=== PATIENT | male | born 1990 | race Hispanic/Latino ===

== ENCOUNTER 2023-02-20 14:06 | Emergency (ER) | payer SELFPAY ==
[2023-02-20 14:18] VITALS: BP 148/96; PULSE 89; RESP 16; TEMP 36.4; O2SAT 100
--- NOTE | 2023-02-20 14:20 | ED.SKABFB ---
HPI - Skin/Abscess/Foreign Bdy General Chief complaint: Skin/Abscess/Foreign Body Stated complaint: poison radha Time Seen by Provider: 02/20/23 14:10 Source: patient Mode of arrival: ambulatory Limitations: no limitations History of Present Illness HPI narrative: Patient is a 32-year-old male who presents with rash on bilateral ankles and arms. Patient states he cut the grass on Thursday and noticed a rash on Thursday. Patient has been using calamine lotion and other anti-itch spray with mild relief. States it appears and feels the same as when he had poison radha in the past. Denies any pain 2 lesions just itching. Denies any fever, chills, nausea, vomiting, diarrhea Related Data Allergies Allergy/AdvReac Type Severity Reaction Status Date / Time No Known Allergies Allergy Verified 02/20/23 14:17 Review of Systems Review of Systems: All systems reviewed & are unremarkable except as noted in HPI and below Constitutional: Constitutional: Denies body ache(s), Denies chills, Denies fatigue, Denies fever(s), Denies headache(s), Denies malaise and Denies weakness Eyes: Eyes: Denies blurry vision, Denies irritation and Denies loss of vision ENT: Denies otalgia, Denies headache(s), Denies nasal discharge, Denies sinus pain and Denies sore throat Cardiovascular: Cardiovascular: Denies chest pain, Denies irregular heart rhythm and Denies dyspnea Respiratory: Respiratory: Denies dyspnea Gastrointestinal: Gastrointestinal: Denies abdominal pain, Denies melena, Denies hematochezia, Denies diarrhea, Denies nausea and Denies vomiting Musculoskeletal: Musculoskeletal: Denies back pain, Denies myalgias and Denies arthralgias Integumentary/Breasts: Skin/Breast: Reports pruritus and Reports rash Neurologic: Denies headache(s), Denies loss of vision and Denies weakness Psychiatric: Psychiatric: Reports no additional psychiatric complaints Endocrine: Endocrine: Denies fatigue PMFSH Comments At time of signature, agree with nursing past medical, surgical, social and family history. There is no relevant family history pertinent to the presenting complaint. Exam Const: General: cooperative, healthy appearing, comfortable, no acute distress and well nourished Nutritional Appearance: well nourished Orientation/consciousness: patient oriented x3 Limitations: no limitations HENMT: Head: normal to inspection, normocephalic and atraumatic Ears: hearing grossly normal bilaterally and external ears normal Face/Nose/Sinus: Normal external nose present, normal facial exam and face symmetric Face and sinus: normal facial exam and face symmetric Mouth: Yes lip normal Eyes: General: appearance normal, both eyes and all related structures Alignment and Position: alignment normal and position normal Periorbital: periorbital findings normal Eyelids: eyelids normal Pupils: Equal, round and reactive pupils present EOM: EOMs intact bilaterally Neck: Neck: normal visual inspection, full ROM and supple Chest: Chest palpation & inspection: normal inspection of the chest Resp: Effort & Inspection: normal respiratory effort and able to speak in complete sentences Auscultation: clear to auscultation bilaterally Cardio: Rate: regular rate Rhythm: regular rhythm Heart sounds: S1 normal heart sound present and S2 normal heart sound present GI: Inspection: normal to inspection Skin: General skin exam: normal color Rashes: rashes noted vesicles bilateral ankle arrangement grouped, color red and surface erythematous and waxy; nontender, vesicles bilateral forearm arrangement grouped, color red and surface erythematous and waxy; nontender Neuro: General: patient oriented x3 and moves all extremities Cranial nerves: Yes Equal, round and reactive pupils present Speech: normal speech Gait exam (Neuro): Normal gait present Extrem: General: normal to inspection, full ROM and no edema Psych: Appearance: grossly normal and well kempt Mental Status: mental s
== END 2023-02-20 14:31 | disposition home or self-care (01) ==
PROVIDERS: Emergency Provider Nurse Practitioner Family
DX: L23.7 Allergic contact dermatitis due to plants, except food (principal)
CPT/HCPCS: 99213; G0463

== ENCOUNTER 2023-09-20 11:44 | Emergency (ER) | payer SELFPAY ==
[2023-09-20 11:56] VITALS: BP 139/91; PULSE 111; RESP 16; TEMP 36.4; O2SAT 99
--- NOTE | 2023-09-20 12:13 | ED.GENADULT ---
HPI - General Adult General Chief complaint: Ear Stated complaint: Earache, Sore Throat, Cough Time Seen by Provider: 09/20/23 12:05 Source: patient and RN notes reviewed Mode of arrival: ambulatory Limitations: no limitations History of Present Illness HPI narrative: Patient presents today with a 1.5-2 week history of right ear pain and sore throat with swallowing. Denies cough, congestion, rhinorrhea. Currently rates his pain 4/10 and has been taking Tylenol without much relief. Related Data Allergies Allergy/AdvReac Type Severity Reaction Status Date / Time No Known Allergies Allergy Verified 02/20/23 14:17 Review of Systems Review of Systems: CONSTITUTIONAL: Denies body aches, fever, chills, or sweats. EYES: Denies visual changes, redness, or discharge. ENT: Denies rhinorrhea, congestion. + right ear pain, sore throat CARDIOVASCULAR: Denies chest pain, palpitations, or edema. RESPIRATORY: Denies cough or dyspnea. GASTROINTESTINAL: Denies abdominal pain, nausea, vomiting, or diarrhea. GENITOURINARY: Denies dysuria or hematuria. SKIN: Denies rash, itching, or wounds. MUSCULOSKELETAL: Denies back pain, joint pain, or myalgia. NEUROLOGIC: Denies headache, numbness, tingling, or weakness. PSYCH: Denies depression or anxiety. PMFSH Comments At time of signature, I have reviewed and agree with nursing past medical, surgical, social and family history unless otherwise noted. Please see nursing chart for further information. There is no relevant family history pertinent to the presenting complaint Exam Narrative: GENERAL: Well-appearing, well-nourished, and in no acute distress. HEAD: Normocephalic, atraumatic. EYES: EOMI. No redness or drainage. Conjunctivae normal. ENT: Mucous membranes pink and moist. Nares clear. No rhinorrhea. TMs normal bilaterally. Throat scantly erythematous without edema or exudate. Uvula midline. NECK: Normal AROM. Supple. No lymphadenopathy. CHEST: No respiratory distress. Clear to auscultation. HEART: Regular rate and rhythm. No murmur appreciated. EXTREMITIES: Normal range of motion. No edema. SKIN: Warm, dry, no rash. Capillary refill normal. Normal skin turgor. NEURO: No focal deficits. Alert and oriented x3. Gait steady. PSYCH: Normal affect. No signs of depression or anxiety. Course Course Level of Care: Express Care Visit Vital Signs Vital signs: Vital Signs Temperature 97.6 F 09/20/23 11:56 Pulse Rate 111 H 09/20/23 11:56 Respiratory Rate 16 09/20/23 11:56 Blood Pressure 139/91 H 09/20/23 11:56 Pulse Oximetry 99 09/20/23 11:56 Temperature 97.6 F 09/20/23 11:56 Pulse Rate 111 H 09/20/23 11:56 Respiratory Rate 16 09/20/23 11:56 Blood Pressure 139/91 H 09/20/23 11:56 Pulse Oximetry 99 09/20/23 11:56 Reviewed Medical Decision Making MDM Narrative Medical decision making narrative: Rapid strep negative. Culture pending. Since patient's symptoms have been present for 10-14 days, will try him on some amoxicillin and prednisone to see if this helps resolve his symptoms. Patient agrees with plan. Anticipatory guidance given. Differential Diagnosis Differential Diagnosis: Strep throat, pharyngitis, otitis media, URI Vital Signs Vital Signs: Vital Signs Temperature 97.6 F 09/20/23 11:56 Pulse Rate 111 H 09/20/23 11:56 Respiratory Rate 16 09/20/23 11:56 Blood Pressure 139/91 H 09/20/23 11:56 Pulse Oximetry 99 09/20/23 11:56 Temperature 97.6 F 09/20/23 11:56 Pulse Rate 111 H 09/20/23 11:56 Respiratory Rate 16 09/20/23 11:56 Blood Pressure 139/91 H 09/20/23 11:56 Pulse Oximetry 99 09/20/23 11:56 Lab Data Lab results reviewed: Yes I reviewed the patient's lab results. Labs: Strep Screen Presumptive Negative *(Reference Range: Negative)* Critical Care Time Critical Care Time Critical Care Time: No Discharge Plan
== END 2023-09-20 12:38 | disposition home or self-care (01) ==
PROVIDERS: Emergency Provider Nurse Practitioner
DX: J02.9 Acute pharyngitis, unspecified (principal)
CPT/HCPCS: 87081; 87880; 99213; G0463